=== PATIENT | female | born 1970 | race Native Hawaiian/Other Pacific Islander ===

== ENCOUNTER 2019-08-03 09:42 | Outpatient (CLI) | payer OTHER, SELFPAY ==
--- NOTE | ~2019-08-03 | US_ITS ---
US pelvic complete w TV DATE: 08/03/2019 11:49 INDICATION: Left ovarian cyst TECHNIQUE: Real-time imaging via transabdominal and transvaginal approaches COMPARISON: 06/16/2018 pelvic ultrasound; a 7.1 cm left ovarian cyst was reported FINDINGS: Uterus measures approximately 10 cm height, approximately 4.5 cm anteroposterior dimension. There is evidence of an approximately 3 cm uterine fibroid. The central endometrial echo complex gloria sures approximately 4.5 mm maximal anteroposterior dimension. An approximately 4.4 x 3.3 x 3.3 cm left ovarian cyst is noted. The right ovary is unremarkable. No pelvic mass or abnormal pelvic free fluid collection is noted. IMPRESSION: Left ovarian up to 4.4 cm cyst Uterine fibroid Reviewed, dictated and finalized at [facility]. Reviewed, dictated and finalized at [facility].
== END 2019-08-03 09:43 | disposition home or self-care (01) ==
LOC: ANHIMG 09:51
PROVIDERS: PCP Internal Medicine; Visit Provider Nurse Practitioner
DX: D25.9 Leiomyoma of uterus, unspecified (principal); N83.202 Unspecified ovarian cyst, left side
CPT/HCPCS: 76830; 76856

== ENCOUNTER → 2020-07-01 14:16 | Outpatient (CLI) | payer BC, SELFPAY ==
--- NOTE | ~2020-07-01 | US_ITS ---
EXAMINATION: US transvaginal EXAM DATE: 07/01/2020 14:49 INDICATION: Left ovarian cyst. TECHNIQUE: Pelvic transvaginal sonogram was performed. There are multiple grayscale and Doppler imag es available for interpretation. Comparison is made to prior examination from 08/03/2019. FINDINGS: Uterus measures 8.4 x 4.1 x 6.5 cm, with several fibroids measuring up to about 4 cm. Endo metrial stripe measures 3 mm, within normal limits. There is no free pelvic fluid. Right adnexa: The ovary is not identified. There is no adnexal mass. Left adnexa: The ovary measures 4.7 x 4.1 x 4.3 cm, with most of this volume taken up by an anechoic cystic lesion measuring 3.4 x 3.4 x 3.8 cm, smaller than the anechoic lesion on prior study. Uncertai n whether or not this is the same cyst or a different cyst as that exam, but neoplasms typically don' t decrease in size. No evidence of mural nodule or complexity. Most likely the dominant follicle. Ova radha vascular flow confirmed. IMPRESSION: 1. Left ovarian cystic lesion, most likely the dominant follicle. 2. Fibroids. Reviewed, dictated and finalized at location [facility].
--- NOTE | ~2020-07-01 | MM_ITS ---
EXAMINATION: MM screening [facility] w partha HISTORY: Screening mammogram TECHNIQUE: Craniocaudal and mediolateral oblique 3-D tomosynthesis images were obtained and synthetic 2-D images were generated. CAD analysis was submitted and interpreted. COMPARISON: 06/16/2018, 06/02/2017, 04/24/2015 bilateral digital screening mammogram examinations BREAST PARENCHYMAL COMPOSITION: There are scattered areas of fibroglandular density. FINDINGS: There is no evidence of suspicious mass, calcification, or architectural distortion to sugg est malignancy in either breast. There has been no suspicious interval change. IMPRESSION: 1. No mammographic evidence of malignancy. 2. Recommend routine screening mammography in one year. BI-RADS Category 1: Negative Reviewed, dictated and finalized at location [facility].
== END ==
PROVIDERS: Visit Provider Nurse Practitioner
DX: Z12.31 Encounter for screening mammogram for malignant neoplasm of breast (principal); N83.202 Unspecified ovarian cyst, left side; D25.9 Leiomyoma of uterus, unspecified
CPT/HCPCS: 76830; 77063; 77067

== ENCOUNTER → 2021-07-21 13:57 | Outpatient (CLI) | payer OTHER, SELFPAY ==
--- NOTE | ~2021-07-21 | MM_ITS ---
EXAMINATION: MM screening [facility] w partha HISTORY: Screening TECHNIQUE: Craniocaudal and mediolateral oblique 3-D tomosynthesis images were obtained and synthetic 2-D images were generated. CAD analysis was submitted and interpreted. COMPARISON: Comparison to multiple prior studies sequentially, with oldest reviewed study dated 01/25. BREAST PARENCHYMAL COMPOSITION: There are scattered areas of fibroglandular density. FINDINGS: There is no evidence of suspicious mass, calcification, or architectural distortion to sugg est malignancy in either breast. There has been no suspicious interval change. IMPRESSION: 1. No mammographic evidence of malignancy. 2. Recommend routine screening mammography in one year. BI-RADS Category 1: Negative Reviewed, dictated and finalized at location [facility].
--- NOTE | ~2021-07-21 | DEXA_ITS ---
Bone Density Report Name: ELENA ANDERSON Age: 51 Sex: Female Ethnicity: White Date of : 1970 Indication: postmenopausal; screening for osteoporosis; Referring Provider: DANICA, ROSELINE Study: Bone densitometry was performed. Exam Date: July 21, 2021 Accession number: [id number] Bone Density: Region BMD T-score Z-score Classification AP Spine (L1-L4) 0.920 -1.2 -0.3 Osteopenia Femoral Neck (Left) 0.696 -1.4 -0.5 Osteopenia Total Hip (Left) 0.897 -0.4 0.2 Normal Femoral Neck (Right) 0.692 -1.4 -0.5 Osteopenia Total Hip (Right) 0.852 -0.7 -0.2 Normal Total Hip Mean 0.875 -0.6 0.0 Normal World Health Organization criteria for BMD impression classify patients as: Normal (T-score at or above -1.0), Osteopenia (T-score between -1.0 and -2.5), or Osteoporosis (T-score at or below -2.5). 10-year Fracture Risk(1): Major Osteoporotic Fracture 5.4% Hip Fracture 0.4% Reported Risk Factors: [place] (), Neck BMD=0.692, BMI=28.1 (1) FRAX(R) Version 3.08. Fracture probability calculated for an untreated patient. Fracture probability may be lower if the patient has received treatment. Clinical Information Provided by Patient: Has used the following medications: Vitamin D Patient maximum height was 63.75 Menopause Age: 50 No regular weight bearing exercise Onset of menses at age 13 Number of children 2 Impression: The patient has low bone mass, based on the Left Femoral Neck T-score. The patient has an estimated ten-year risk of hip fracture of 0.4% and an estimated ten-year risk of major fracture of 5.4%, based on the WHO FRAX algorithm. Discussion: BONE DENSITY IS LOW AT ONE OR MORE SKELETAL SITES. This patient's lowest T-score is low at one or more skeletal sites. It meets the World Health Organization's (WHO) criteria for ?low bone mass? (T-score between -1.0 and -2.5). The patient's 10-year risk of fracture as calculated by FRAX is less than the threshold where pharmacological therapy is recommended by the National Osteoporosis Foundation (NOF). However, all treatment decisions require clinical judgment and consideration of individual patient factors, including patient preferences, comorbidities, previous drug use, risk factors not captured in the FRAX model (e.g., frailty, falls, vitamin D deficiency, increased bone turnover, interval significant decline in bone density) and possible under or overestimation of fracture risk by FRAX. The patient should follow a healthful lifestyle (good nutrition with adequate calcium and vitamin D, and appropriate weight-bearing exercise). Follow-Up: Consider repeating this study in 2 to 3 years to reassess this patient's status, or sooner if there is some new clinical indication. Reported by: CHRIS on 07/21/2021 2:22:00 PM.
== END ==
PROVIDERS: PCP Nurse Practitioner; Visit Provider Nurse Practitioner
DX: Z12.31 Encounter for screening mammogram for malignant neoplasm of breast (principal); Z78.0 Asymptomatic menopausal state; M85.88 Other specified disorders of bone density and structure, other site; M85.852 Other specified disorders of bone density and structure, left thigh; M85.851 Other specified disorders of bone density and structure, right thigh
CPT/HCPCS: 77063; 77067; 77080

== ENCOUNTER → 2022-10-12 12:19 | Outpatient (CLI) | payer OTHER, SELFPAY ==
--- NOTE | ~2022-10-12 | MM_ITS ---
EXAMINATION: MM screening [facility] w [facility] HISTORY: Screening TECHNIQUE: Craniocaudal and mediolateral oblique 3-D tomosynthesis images were obtained and synthetic 2-D images were generated. CAD analysis was submitted and interpreted. COMPARISON: Comparison to multiple prior studies sequentially, with oldest reviewed study dated 01/26. BREAST PARENCHYMAL COMPOSITION: There are scattered areas of fibroglandular density. FINDINGS: Left breast asymmetry upper central left breast unchanged dating back to 06/02/2017. There is no evidence of suspicious mass, calcification, or architectural distortion to suggest malignancy i n either breast. There has been no suspicious interval change. IMPRESSION: 1. No mammographic evidence of malignancy. 2. Recommend routine screening mammography in one year. BI-RADS Category 1: Negative Reviewed, dictated and finalized at location [facility].
== END ==
PROVIDERS: PCP Internal Medicine; Visit Provider Nurse Practitioner
DX: Z12.31 Encounter for screening mammogram for malignant neoplasm of breast (principal)
CPT/HCPCS: 77063; 77067

== ENCOUNTER 2024-04-26 11:38 | Outpatient (CLI) | payer OTHER, SELFPAY ==
--- NOTE | ~2024-04-26 | MM_ITS ---
EXAMINATION: MM screening [facility] w [facility] HISTORY: Screening TECHNIQUE: Craniocaudal and mediolateral oblique 3-D tomosynthesis images were obtained and synthetic 2-D images were generated. CAD analysis was submitted and interpreted. COMPARISON: Comparison to multiple prior studies sequentially, with oldest reviewed study dated 11/2027. BREAST PARENCHYMAL COMPOSITION: Not dense: There are scattered areas of fibroglandular density. FINDINGS: Left breast asymmetry is unchanged from prior studies. There is no evidence of suspicious m ass, calcification, or architectural distortion to suggest malignancy in either breast. There has bee n no suspicious interval change. IMPRESSION: 1. No mammographic evidence of malignancy. 2. Recommend routine screening mammography in one year. BI-RADS Category 1: Negative Reviewed, dictated and finalized at location [facility]. [facility]
== END 2024-04-26 11:39 | disposition home or self-care (01) ==
LOC: MICIMG 11:39
PROVIDERS: PCP Internal Medicine; Visit Provider Nurse Practitioner
DX: Z12.31 Encounter for screening mammogram for malignant neoplasm of breast (principal)
CPT/HCPCS: 77063; 77067

== ENCOUNTER 2024-06-10 15:32 | Outpatient (CLI) | payer OTHER, SELFPAY ==
--- NOTE | ~2024-06-10 | CT_ITS ---
CT abdomen pelvis w con Ordering provider: Renata Valdez MD History: 54 years Female with . LLQ pain . Comparison: None. Technique: CT abdomen and pelvis with IV and without oral contrast. Automated exposure control and it erative reconstruction technique were employed. The dose-length product was 662.03 mGy-cm. 100 mL Omn ipaque 350 was given IV. Findings: VISUALIZED LOWER CHEST: Normal. UPPER ABDOMINAL ORGANS: Liver: Hypodensity in the right lobe of the liver segment #6 measuring 1.2 cm is noted most likely a cyst. Smaller Hypodensity is also seen in the right lobe of the liver. Hypodensity most likely a cyst also seen in the left lobe measuring 1.3 cm. Gallbladder: Status post cholecystectomy. CBD measures 9 mm. Spleen: Hypodensity seen in the spleen anteriorly measuring 2.3 cm. Small septation or loculation is seen anteriorly. This is most likely a cyst. Follow-up advised. Stomach/duodenum: Normal. Pancreas: Normal. Adrenals: Normal. Kidneys: Normal. PELVIC ORGANS: The bladder is normal. Highly suggestive fibroids are seen in the uterus. Left ovaria n hypodensity is seen most likely a cyst measuring 3 cm. BOWEL AND MESENTERY: Colon: Diverticulitis is seen at the junction of the descending colon with the sigmoid colon with fat stranding around the colon. No abscess formation seen. No free air.. Appendix is not demonstrated. Small Bowel: Normal. No obstruction. Peritoneum/mesentery: No free air or free fluid. No mesenteric lymphadenopathy. RETROPERITONEUM: Normal aorta. No retroperitoneal lymphadenopathy. MUSCULOSKELETAL: Superficial soft tissues: The superficial soft tissues are normal. Bones: Normal spine. IMPRESSION: 1. Diverticulitis of the junction of the descending colon with the sigmoid colon with no abscess for mation or perforation. 2. Highly suggestive fibroid of the uterus. 3. Highly suggestive cyst in the left ovary. 4. Multiple hypodensities in the liver most likely small cysts. 5. Cyst in the spleen. Reviewed, dictated and finalized at location [facility]. IMPRESSION: 1. Diverticulitis of the junction of the descending colon with the sigmoid col on with no abscess formation or perforation. 2. Highly suggestive fibroid of the uterus. 3. Highly suggestive cyst in the left ovary. 4. Multiple hypodensities in the liver most likely small cysts. 5. Cyst in the spleen.
== END 2024-06-10 15:33 | disposition home or self-care (01) ==
LOC: MICIMG 15:34
PROVIDERS: PCP Internal Medicine; Visit Provider Obstetrics & Gynecology Gynecology
DX: D73.4 Cyst of spleen (principal); K57.32 Diverticulitis of large intestine without perforation or abscess without bleeding
CPT/HCPCS: 74177; Q9967